=== PATIENT | female | born 1930 | race Two or more races ===

== ENCOUNTER 2018-01-31 23:15 | Inpatient (IN) | payer MEDICARE, OTHER ==
[~2018-01-31] VITALS: Ht 160 cm; Wt 49.0 kg
--- NOTE | 2018-01-31 21:40 | NUR ---
PT REFUSED SCHEDULED MEDS. OFFER 3X. EXPLAIN THE RISK AND BENEFITS. PT STILL REFUSED. WILL CONTINUE TO MONITOR. Addendum: 02/01/18 at 2329 by CINDY LIN RN 01/31/18 @2139 PT REFUSED SCHEDULED MEDS. OFFER 3X. EXPLAIN THE RISK AND BENEFITS. PT STILL REFUSED. WILL CONTINUE TO MONITOR. Addendum: 02/01/18 at 2331 by CINDY LIN RN 02/01/18 @2139 PT REFUSED SCHEDULED MEDS. OFFER 3X. EXPLAIN THE RISK AND BENEFITS. PT STILL REFUSED. WILL CONTINUE TO MONITOR.
[2018-02-01] MEDS ORDERED: MAG HYDROX/AL HYDROX/SIMETH 30 ML UDC PO PRN (02:00)
[2018-02-01] MEDS ORDERED: MAGNESIUM HYDROXIDE 30 ML UDC PO PRN (02:00)
[2018-02-01] MEDS ORDERED: TEMAZEPAM 7.5 MG CAPSULE PO PRN (02:00)
[2018-02-01] MEDS ORDERED: LORAZEPAM 0.5 MG TABLET PO PRN (02:00)
--- NOTE | 2018-02-01 02:40 | NUR ---
PATIENT ADMITTED DIRECTLY FROM [facility] ON 5150 HOLD FOR GD. CAME TO THE UNIT AROUND 0140 VIA GURNEY ACCOMPANIED BY 2 MALE PARAMEDICS. PLACED PATIENT IN BED COMFORTABLY. PATIENT IS ALERT X1 TO HER NAME DUE TO ATIVAN GIVEN PRIOR COMING HERE. PATIENT ADMITTED DUE TO MENTAL HEALTH DECOMPENSATION. PATIENT IS TAKING EVERYTHING OUT FROM DRAWERS AND CABINETS, SOILED LINENS FOUND IN SINK, PATIENT HAS NOT SLEPT FOR DAYS AND NOT EATEN FOR AR LEAST 2 DAYS. BATH TUB FOUND OVERFLOWING. PATIENT UNKEMPT, POOR HYGIENE, DISHEVELED, DISORIENTED, DISORGANIZED, CONFUSED, POOR JUDGEMENT AND HAS POOR INSIGHT. RESPIRATION EVEN, BREATHING PATTERN NON-LABORED, NO ACUTE DISTRESS NOTED. ABLE TO WALK AND TRANSFER TO BED WITH ASSISTANCE. SKIN WARM, DRY AND CLEAR. BELONGINGS WERE INVENTORIED AND CHECKED FOR CONTRABAND. PATIENT IS UNDER THE PSYCHIATRIC CARE OF DR. GONZALEZ, MEDICAL CARE OF DR. ABDI. MED RECON NEEDS FOLLOW -UP IN THE MORNING. MRSA SCREEN DONE. DAUGHTER ZULEYKA WHYTE CALLED AND ASKED FOR PATIENT'S CURRENT CONDITION, TEL. NO.[phone]. FAMILY WILL CALL AGAIN IN THE MORNING. BED LOCKED AND PLACED ON LOWEST POSITION. WILL CONTINUE TO MONITOR FOR SAFETY AND BEHAVIOR.
[2018-02-01] MEDS ORDERED: ALBU18HF2 INH (03:07)
[2018-02-01] MEDS ORDERED: HYDR200T81 PO (03:07)
[2018-02-01] MEDS ORDERED: DICL100G16 TP (03:07)
[2018-02-01] MEDS ORDERED: ONDA4TAB11 PO (03:07)
[2018-02-01] MEDS ORDERED: CITA20TA16 PO (03:07)
[2018-02-01] MEDS ORDERED: AMLO5TAB7 PO (03:07)
[2018-02-01] MEDS ORDERED: METH4TAB17 PO (03:07)
[2018-02-01] MEDS ORDERED: SUCR1TAB PO (03:07)
--- NOTE | 2018-02-01 07:11 | NUR ---
PAGED DR. RAIN FOR MED RECON.
[2018-02-01 08:00] VITALS: BP 136/89
[2018-02-01] MEDS ORDERED: methylPREDNISolone (4MG) 4 MG TABLET PO SCH (13:30)
[2018-02-01] MEDS ORDERED: ALBUTEROL FS 2.5 MG/3 ML VIAL.NEB NEB PRN (13:30)
[2018-02-01] MEDS ORDERED: HOME MED - VOLTAREN GEL TP SCH (14:00)
[2018-02-01] MEDS: ACETAMINOPHEN 325 MG TABLET PO PRN (14:50)
[2018-02-01 16:04] VITALS: BP 114/58
[2018-02-01] MEDS ORDERED: ONDANSETRON 4 MG TAB.RAPDIS PO PRN (17:00)
[2018-02-01] MEDS: DIVALPROEX SODIUM 125 MG CAP.SPRINK PO SCH ×2 (17:00→18:06)
[2018-02-01] MEDS: SUCRALFATE 1 G TABLET PO SCH ×2 (17:00→17:54)
--- NOTE | 2018-02-01 18:26 | NUR ---
GPS/RN PT REFUSED MEDS SCHEDULED FOR 1700 OFFERED X5.
[2018-02-01 20:00] VITALS: BP 102/64
[2018-02-01] MEDS: QUETIAPINE FUMARATE 25 MG TABLET PO SCH (21:35)
[2018-02-02] MEDS: ACETAMINOPHEN 325 MG TABLET PO PRN ×4 (03:11→21:35)
--- NOTE | 2018-02-02 03:27 | NUR ---
PT COMPLAIN OF BACK PAIN 07/13. TYLENOL 650MG PO GIVEN ORDERED. WILL CONTINUE TO MONITOR FOR PAIN.
[2018-02-02 07:07] LABS: HEMATOCRIT 42 % (33-45); HEMOGLOBIN 13.6 g/dL (11.5-14.8); MEAN CORPUSCULAR HGB CONC 32 g/dl (31.0-36.0); MEAN CORPUSCULAR VOLUME 84 fL (82-100); PLATELET COUNT (AUTO) 209 /CMM (150-450); RDW COEFFICIENT OF VARIATION 15.4 (11.5-15.0); RED BLOOD CELL COUNT(AUTO) 5.03 MIL/uL (4.0-5.2); WHITE BLOOD COUNT (AUTO) 7.6 K/uL (4.3-11.0)
[2018-02-02 07:34] LABS: ALANINE AMINOTRANSFERASE 46 U/L (12-78); ALBUMIN 3.3 g/dL (3.4-5.0); ALKALINE PHOSPHATASE 83 U/L (46-116); ASPARTATE AMINOTRANSFERASE 48 U/L (15-37); BILIRUBIN,TOTAL 0.7 mg/dL (0.2-1.0); CARBON DIOXIDE 35 mmol/L (21-32); CHLORIDE 100 mmol/L (98-107); GLUCOSE 92 mg/dL (74-106); POTASSIUM 3.4 mmol/L (3.5-5.1); SODIUM SERUM 139 mmol/L (136-145); TOTAL PROTEIN, SERUM 6.9 g/dL (6.4-8.2); UREA NITROGEN, BLOOD 26 mg/dL (7-18)
[2018-02-02 07:36] LABS: CHOLESTEROL 158 mg/dL (<200); HDL CHOLESTEROL 77 mg/dL (40-60); LDL 70 mg/dL (0-99); TRIGLYCERIDES 77 mg/dL (30-150)
[2018-02-02 08:00] VITALS: BP 122/65
[2018-02-02] MEDS: SUCRALFATE 1 G TABLET PO SCH ×2 (08:45→16:17)
[2018-02-02] MEDS: DIVALPROEX SODIUM 125 MG CAP.SPRINK PO SCH ×2 (08:45→16:17)
[2018-02-02] MEDS: ESCITALOPRAM OXALATE (10 MG) 10 MG TABLET PO SCH (08:45)
[2018-02-02] MEDS: AMLODIPINE BESYLATE 5 MG TABLET PO SCH (08:45)
[2018-02-02 08:56] LABS: LYMPHOCYTES % (MANUAL) 28 % (16-48); MONOCYTES % (MANUAL) 12 % (0-11.0); NEUTROPHILS % (MANUAL) 59 (42-76)
[2018-02-02 08:57] LABS: EOSINOPHILS % (MANUAL) 1 % (0-4)
[2018-02-02] MEDS ORDERED: HYDROXYCHLOROQUINE 200 MG TABLET PO SCH (09:00)
[2018-02-02] MEDS ORDERED: POTASSIUM CHLORIDE 20 MEQ TAB.PRT.SR PO SCH (10:00)
[2018-02-02 16:00] VITALS: BP 117/63
--- NOTE | 2018-02-02 19:40 | NUR ---
GPS/RN NOTES RECEIVED PATIENT IN BED, ALERT, ABLE TO VERBALIZE NEEDSREPORTED FEELING COLD, WILL PROVIDE BLANKET AND KEEP ROOM WARM. WILL MONITOR.
[2018-02-02 20:00] VITALS: BP_SYST 117; BP_SYST 149; BP_DIAS 63; BP_DIAS 82
[2018-02-02 20:09] VITALS: BP 149/82
--- NOTE | 2018-02-02 20:33 | NUR ---
GPS/RN NOTES PATIENT FAMILY INVOLVED AND PATIENT VERBALIZED NEEDS AND CONCERNS WITH MEDICATION THAT REQUESTED AND REFUSED TO TAKE SEROQUEL, WILL MONITOR.
[2018-02-02] MEDS: QUETIAPINE FUMARATE 25 MG TABLET PO SCH (20:35)
--- NOTE | 2018-02-02 20:53 | NUR ---
GPS/RN NOTES PATIENT DAUGHTER INFORMED THAT PATIENT MEDICATION SEROQUEL CONCERN AND WITH PACEMAKER AND HEART DISEASE CONCERN FOR ANY SIDE EFFECT SAID WILL HOLD MED AND WILL INFORM MD.ONLY TO GIVE NEEDED SLEEPING PILL FOR INABILITY TO SLEEP.
--- NOTE | 2018-02-02 21:15 | NUR ---
GPS/RN NOTES ARIE REQUESTED MEDICATION TO HELP HER SLEEP, RESTORIL 7.5 MG PO MD ORDER GIVEN WILL MONITOR SLEEP
[2018-02-03] MEDS: ACETAMINOPHEN 325 MG TABLET PO PRN (05:42)
--- NOTE | 2018-02-03 05:44 | NUR ---
gps/rn notes PATIENT WITH PAIN IN BACK 07/13, REQUESTED FO PAIN MEDICATION, TYLENOL 650 MG PO GIVEN. TO MONITOR RELIEF.
[2018-02-03 08:00] VITALS: BP 99/56
[2018-02-03] MEDS: AMLODIPINE BESYLATE 5 MG TABLET PO SCH (09:00)
[2018-02-03] MEDS: DIVALPROEX SODIUM 125 MG CAP.SPRINK PO SCH ×2 (09:37→17:08)
[2018-02-03] MEDS: ESCITALOPRAM OXALATE (10 MG) 10 MG TABLET PO SCH (09:37)
[2018-02-03] MEDS: SUCRALFATE 1 G TABLET PO SCH ×2 (09:38→17:08)
--- NOTE | 2018-02-03 11:30 | NUR ---
EJ spoke with pts daughter and DPOA Kevin [phone] and pts granddaughter Lizbet Diana who expressed several concerns with pts current hospitalization. Both stated that they are concerned for pts safety in the unit. They're first concern is that a psych evaluation has not been given to them after requesting it several times, they are also concerned with pts psychotropic medication stating that pts towel inspector at [facility] stated to family that pt shouldn't be given any medications without his approval due to pt having a pace maker. Pts daughter/granddaughter also informed SW that pt should not be on a hold and that the information on the hold is falsified and given to Crisis Team by a third constitution party member who lied about pts current mental state. Pts daughter stated she was currently speaking to a flour blender and was looking into taking pt home right away and because she's pts DPOA she has the legal right to take her AMA. SW explained that legally the family is unable to take pt AMA and also confirmed that pt is not conserved. EJ also explained that pt is discharged based on MD's evaluation and treatment and if MD feels pt still meets criteria for hospitalization pts hold with be recertified as a 5250 hold. EJ informed family that she would discuss their concerns with MD and have MD contact family to further discuss treatment and discharge plan. Per pts daughter Kevin, pt will return home and daughter will transport pt home. Addendum: 02/03/18 at 1223 by LAYLA PAGAN Per daughter, a psychiatrist at [facility] completed a psych evaluation on pt which stated pt is competent. SW requested documentation be faxed to her or brought to the unit and given to charge nurse to place in pts chart. Pts daughter stated she was currently working on obtaining documentation from [facility].
--- NOTE | 2018-02-03 12:46 | NUR ---
INITIAL DISCHARGE PLAN: Patient wishes to be discharged home to [address] [place], [place], [address] . SW confirmed with pts daughter Kevin [phone] who stated she will be transporting pt home when discharged. SW will help form a safe and proper discharge in collaboration with pt, MD, and family.
--- NOTE | 2018-02-03 13:32 | NUR ---
EJ received voicemail from pts daughter Kevin [phone] stating that [facility] medical records stated that they need a request from MD's office in order to fax over psych evaluation they completed on pt. SW will inform MD and ask if he needs additional information.
[2018-02-03 16:00] VITALS: BP 107/72
[2018-02-03 20:23] VITALS: BP 163/78
[2018-02-03] MEDS: QUETIAPINE FUMARATE 25 MG TABLET PO SCH (20:45)
--- NOTE | 2018-02-03 20:45 | NUR ---
PATIENT REQUESTED FOR HER SEROQUEL 12.5 MG TAB PO AT THIS TIME AND GIVEN.
[2018-02-04 08:00] VITALS: BP 151/83
[2018-02-04] MEDS: DIVALPROEX SODIUM 125 MG CAP.SPRINK PO SCH ×2 (08:56→17:35)
[2018-02-04] MEDS: ESCITALOPRAM OXALATE (10 MG) 10 MG TABLET PO SCH (08:56)
[2018-02-04] MEDS: AMLODIPINE BESYLATE 5 MG TABLET PO SCH (08:56)
[2018-02-04] MEDS: SUCRALFATE 1 G TABLET PO SCH ×2 (08:56→17:35)
--- NOTE | 2018-02-04 11:30 | NUR ---
EJ received a phone call from pts gurpreet Vickers [phone] requesting pt information. EJ informed her that she did not have authorization to release pt information. JE advised pts gurpreet Vickers to speak to pts HELENE Brown.
[2018-02-04 16:00] VITALS: BP 135/71
[2018-02-04 20:34] VITALS: BP 107/59
[2018-02-04] MEDS: QUETIAPINE FUMARATE 25 MG TABLET PO SCH (21:21)
[2018-02-05 08:00] VITALS: BP 129/80
[2018-02-05 08:52] VITALS: BP 129/80
[2018-02-05] MEDS: SUCRALFATE 1 G TABLET PO SCH (08:52)
[2018-02-05] MEDS: DIVALPROEX SODIUM 125 MG CAP.SPRINK PO SCH (08:52)
[2018-02-05] MEDS: AMLODIPINE BESYLATE 5 MG TABLET PO SCH (08:52)
[2018-02-05] MEDS: ESCITALOPRAM OXALATE (10 MG) 10 MG TABLET PO SCH (08:52)
--- NOTE | 2018-02-05 13:00 | NUR ---
NURSING NOTE PT WAS DISCHARGED TODAY AT [address] TO [address], [place] [address] WITH HER DAUGHTER ZULEYKA AND GRANDDAUGHTER VIA PRIVATE VEHICLE. PT LEFT THE UNIT VIA MARIBELL CHAIR WITH NURSING AID AND HER FAMILY AT SIDE. PT IS CALM, COOPERATIVE, A&OX2, FORGETFUL AT TIMES, PLEASANT, DENIES SI/HI AT THE TIME OF DISCHARGE, VS STABLE. PT REFUSED SKIN ASSESSMENT. ALL BELONGINGS WERE RETURNED TO PT. PT HAS SIGNED ALL DISCHARGE PAPERWORK. DISCHARGE INSTRUCTIONS WERE GIVEN TO PT AND PT'S DAUGHTER AND THEY VERBALIZED UNDERSTANDING OF INSTRUCTIONS. PRESCRIPTIONS WERE GIVEN TO PT AND PT'S DAUGHTER FROM BOTH DR. CASTILLO AND DR. GONZALEZ. PT IS MEDICALLY STABLE FOR DISCHARGE PER DR. CASTILLO. DISCHARGE ORDER WAS OBTAINED FROM DR. GONZALEZ WELL.
--- NOTE | 2018-02-05 13:30 | NUR ---
DISCHARGE NOTE: Pt was discharged at [address], [place], [address]. Pt was picked up by pts daughter Kevin [phone] and transported home. Pt was in a euphoric mood with congruent affect. Pt denied suicidal/homicidal ideations and denied visual/auditory hallucinations. For smoking cessation, patient was referred to the [employer] or [employer] [id number]. provided pt with a referral to [facility] Address: [address] [place] [address] [place] [id number] and pts daughter will schedule a follow-up appointment with pts Speech And Language Assistant: Dr. Jose Anaya [address] [address] . The multidisciplinary exitcare form was done, printed, signed, and given to the patient.
== END 2018-02-05 13:00 | disposition home or self-care (01) | DRG 885 ==
LOC: GPS 02-01 01:31
PROVIDERS: ADMIT Psychiatry & Neurology Psychiatry; ATTEND Psychiatry & Neurology Psychiatry
DX: F39 Unspecified mood [affective] disorder (principal); F03.91 Unspecified dementia, unspecified severity, with behavioral disturbance; E44.0 Moderate protein-calorie malnutrition; N39.0 Urinary tract infection, site not specified; F32.3 Major depressive disorder, single episode, severe with psychotic features; Z68.1 Body mass index [BMI] 19.9 or less, adult; E87.6 Hypokalemia; F03.90 Unspecified dementia, unspecified severity, without behavioral disturbance, psychotic disturbance, mood disturbance, and anxiety; M19.90 Unspecified osteoarthritis, unspecified site; I10 Essential (primary) hypertension; I25.10 Atherosclerotic heart disease of native coronary artery without angina pectoris; M06.9 Rheumatoid arthritis, unspecified; M72.0 Palmar fascial fibromatosis [Dupuytren]; Z87.440 Personal history of urinary (tract) infections; Z87.891 Personal history of nicotine dependence; Z95.0 Presence of cardiac pacemaker; F29 Unspecified psychosis not due to a substance or known physiological condition; Z88.1 Allergy status to other antibiotic agents; N28.89 Other specified disorders of kidney and ureter
CPT/HCPCS: 36415; 80053-TC; 80061-TC; 85025-TC; 87081-TC; A4606; Z7610